=== PATIENT | male | born 1965 | race Caucasian/White ===

== ENCOUNTER → 2024-05-13 | Outpatient (CLI) | payer OTHER | LOC: CPPFTMAIN 08:48 | PROVIDERS: ATTEND Family Medicine | DX: R06.02 Shortness of breath (principal); F17.210 Nicotine dependence, cigarettes, uncomplicated | CPT/HCPCS: 94060; 94726; 94729 ==

== ENCOUNTER 2024-08-25 06:27 | Day surgery (SDC) | payer OTHER ==
[2024-08-20 11:44] VITALS: BMI 45.3
[2024-08-25] MEDS ORDERED: LIDOCAINE 1% (10MG/ML) FOR IV START INTRADERMA PRN (06:39)
[2024-08-25] MEDS: IV FLUID CONTINUATION 1,000 ML IV ONE (06:49)
[2024-08-25 07:03] VITALS: TEMP 97.8
[2024-08-25] MEDS: LACTATED RINGERS 1,000 ML IV SCH (07:12)
--- NOTE | 2024-08-25 07:46 | P.GSHP ---
History of Present Illness H&P Date: 08/25/24 CHIEF COMPLAINT: Dysphagia and colon screen HISTORY OF PRESENT ILLNESS: The patient is a 59-year-old male who presents with dysphagia, gastroesophageal reflux disease and need for colon screen. Upper and lower endoscopy were offered for further evaluation and management. PAST MEDICAL HISTORY: Please see list. PAST SURGICAL HISTORY: Please see list. MEDICATIONS: Please see list. ALLERGIES: Please see list. SOCIAL HISTORY: No illicit drug use FAMILY HISTORY: No reports of Crohn disease or ulcerative colitis. REVIEW OF ORGAN SYSTEMS: CONSTITUTIONAL: No reports of fevers or chills. GI: Denies any blood in stools or constipation. PHYSICAL EXAM: VITAL SIGNS: Stable GENERAL: Well-developed pleasant in no acute distress. HEENT: No scleral icterus. Extraocular movements grossly intact. Moist buccal mucosa. NECK: Supple without lymphadenopathy. CHEST: Unlabored respirations. Equal bilateral excursions. CARDIOVASCULAR: Regular rate and rhythm. Distal 2+ pulses. ABDOMEN: Soft, nondistended. MUSCULOSKELETAL: No clubbing, cyanosis, or edema. ASSESSMENT: 1. Dysphagia and gastroesophageal reflux disease 2. Colon screen. PLAN: 1. Recommend proceeding with an upper and lower endoscopy Past Medical History Past Medical History: Asthma, GERD/Reflux, GI Bleed, Hearing Disorder / Deafness, Hyperlipidemia, Renal Disease Additional Past Medical History / Comment(s): Back problems, chronic stomach u lcers X3 - requiring hx blood transfusion in the past, slight hearing loss, Stage 2 Kidney Disease. History of Any Multi-Drug Resistant Organisms: None Reported Past Surgical History: Tonsillectomy Additional Past Surgical History / Comment(s): EGD's with biopsy, colonoscopies, endoscopic gastric ulcer repair. Past Anesthesia/Blood Transfusion Reactions: No Reported Reaction Additional Past Anesthesia/Blood Transfusion Reaction / Comment(s): Hx blood transfusion with no problems. Smoking Status: Current every day smoker - Past Family History Father Family Medical History: Cancer Mother Family Medical History: Liver Disease Additional Family Medical History / Comment(s): Mother of Hepatitis. Sister(s) Family Medical History: Cancer Additional Family Medical History / Comment(s): Leukemia. Medications and Allergies Home Medications Medication Instructions Recorded Confirmed Type Albuterol Sulfate [Ventolin HFA] 1 puff INHALATION Q4H PRN 08/20/24 08/25/24 History Budesonide/Formoterol Fumarate 2 puff INHALATION BID 08/20/24 08/25/24 History [Symbicort 80-4.5 Mcg Inhaler] Cyclobenzaprine [Flexeril] 5 mg PO HS PRN 08/20/24 08/25/24 History Omeprazole 40 mg PO QAM 08/20/24 08/25/24 History Rosuvastatin Calcium 20 mg PO HS 08/20/24 08/25/24 History Tamsulosin [Flomax] 0.4 mg PO QAM 08/20/24 08/25/24 History Allergies Allergy/AdvReac Type Severity Reaction Status Date / Time NSAIDS (Non-Steroidal AdvReac Has 3 Verified 08/25/24 06:59 Anti-Inflamma bleeding ulcers Surgical - Exam Vital Signs Temp Pulse Resp BP Pulse Ox 97.8 F 75 16 131/87 96 08/25/24 06:49 08/25/24 06:49 08/25/24 06:49 08/25/24 06:49 08/25/24 06:49
[2024-08-25] MEDS ORDERED: LIDOCAINE 1% INJ 10MG/ML (20 ML MDV) ONE (07:57)
[2024-08-25] MEDS ORDERED: PROPOFOL 10 MG/ML 20 ML VIAL IV ONE (07:57)
[2024-08-25] MEDS ORDERED: KETAMINE HCL IN 0.9 % NACL 50 MG/5 ML SYRINGE ONE (07:57)
--- NOTE | 2024-08-25 08:24 | P.PCN ---
Date of Procedure: 08/25/24 Description of Procedure: PREOPERATIVE DIAGNOSIS: Acute gastric ulcer with bleeding Gastroesophageal reflux disease. Morbid obesity. Dysphagia POSTOPERATIVE DIAGNOSIS: Presbyesophagus Gastritis without bleeding Duodenitis without bleeding OPERATION: Esophagogastroduodenoscopy with cold forceps biopsies along esophagus, antrum and duodenum SURGEON: Taniya Aldridge MD ANESTHESIA: MAC. INDICATIONS: The patient is a 59-year-old male who presents with dysphagia and reflux disease. Benefits and risks of the procedure were described. Informed consent was obtained. DESCRIPTION: The patient was brought into the endoscopy suite and laid in the left lateral decubitus position. An Olympus gastroscope was passed along the posterior oropharynx down to the distal esophagus where the squamocolumnar junction was encountered at 46 cm from the incisors. The stomach was entered and no bile reflux was found. Additional findings are listed below. Biopsies with cold forceps were obtained of the antrum. The first through third portion of the duodenum was examined. Retroflexion of the scope confirmed Hill grade 2 lower esophageal valve. The squamocolumnar junction demonstrated LA grade A erosive esophagitis. The stomach was desufflated. The patient tolerated the procedure well. FINDINGS: Squamocolumnar junction 46 cm from the incisors. Diaphragmatic hiatus at 46 cm. Hill grade 2 lower esophageal valve. LA grade A erosive esophagitis. Biopsies obtained Duodenitis with biopsies obtained of the duodenum. Chronic gastritis with biopsies obtained. Tertiary contractions consistent with presbyesophagus RECOMMENDATIONS: Upper endoscopy as needed.
--- NOTE | 2024-08-25 08:29 | P.PCN ---
Date of Procedure: 08/25/24 Description of Procedure: PREOPERATIVE DIAGNOSIS: Colonoscopy screening POSTOPERATIVE DIAGNOSIS: Tubular adenoma transverse colon Sigmoid diverticulosis Internal hemorrhoids, grade 2 OPERATION: Colonoscopy to the ileocecal valve and appendiceal orifice, cecum Colonoscopy with hot snare polypectomy SURGEON: Taniya Aldridge MD. ANESTHESIA: MAC. INDICATIONS: The patient is an 59-year-old male who presents for colon sick screening. Benefits and risks were described and informed consent was obtained. DESCRIPTION OF PROCEDURE: The patient had undergone Suprep. The patient had been brought into the operating room and laid in the left lateral decubitus position. After adequate intravenous sedation, the rectum was examined with 2% lidocaine jelly. The prostate was unremarkable. No external hemorrhoids were encountered. The rectal tone was within normal limits. No lesions were palpated in the rectal vault. An Olympus colonoscope was advanced until the cecum, ileocecal valve and appendiceal orifice were clearly viewed. The prep was good. Sigmoid diverticulosis was encountered. Colonic polyps were found and removed. No evidence of focal colitis was found. Retroflexion of the scope demonstrated grade 2 internal hemorrhoids without active bleeding or inflammation. The colon was desufflated. The patient had tolerated the procedure well. Withdrawal time was over 6 minutes. FINDINGS: Aronchick preparation quality scale 1+ (1-5) Internal hemorrhoids, grade 2 No external hemorrhoids No arteriovenous malformations. Sigmoid diverticulosis Removal of 2 polyps: - Snare polypectomy mid transverse colon x 2, 5 - 8 mm tubulovillous adenoma No focal colitis. RECOMMENDATIONS: Repeat colonoscopy 3 years, 2027 Plan - Discharge Summary Discharge Rx Participant: No New Discharge Prescriptions: Continue Rosuvastatin Calcium 20 mg PO HS Tamsulosin [Flomax] 0.4 mg PO QAM Omeprazole 40 mg PO QAM Budesonide/Formoterol Fumarate [Symbicort 80-4.5 Mcg Inhaler] 2 puff INHALATION BID Albuterol Sulfate [Ventolin HFA] 1 puff INHALATION Q4H PRN PRN Reason: Shortness Of Breath Cyclobenzaprine [Flexeril] 5 mg PO HS PRN PRN Reason: Pain Discharge Medication List Albuterol Sulfate [Ventolin HFA] 1 puff INHALATION Q4H PRN 08/20/24 [History] Budesonide/Formoterol Fumarate [Symbicort 80-4.5 Mcg Inhaler] 2 puff INHALATION BID 08/20/24 [History] Cyclobenzaprine [Flexeril] 5 mg PO HS PRN 08/20/24 [History] Omeprazole 40 mg PO QAM 08/20/24 [History] Rosuvastatin Calcium 20 mg PO HS 08/20/24 [History] Tamsulosin [Flomax] 0.4 mg PO QAM 08/20/24 [History] Follow up Appointment(s)/Referral(s): Taniya Aldridge MD [STAFF PHYSICIAN] - 09/23/24 3:00 pm Patient Instructions/Handouts: Colorectal Polyps (GEN), Diverticulosis (ED), Diverticulosis Diet (GEN) Activity/Diet/Wound Care/Special Instructions: Repeat colonoscopy 3 years, 2027. Recommend upper endoscopy with rigid dilation for symptomatic dysphagia. Discharge Disposition: HOME SELF-CARE
[2024-08-25 08:36] VITALS: BP 111/83; PULSE 69; RESP 18
== END 2024-08-25 09:01 | disposition home or self-care (01) ==
LOC: ORWHC2ENDO 06:27
PROVIDERS: ATTEND Surgery Plastic and Reconstructive Surgery
DX: Z12.11 Encounter for screening for malignant neoplasm of colon (principal); K29.50 Unspecified chronic gastritis without bleeding; D12.3 Benign neoplasm of transverse colon; K25.0 Acute gastric ulcer with hemorrhage; K25.4 Chronic or unspecified gastric ulcer with hemorrhage; K29.80 Duodenitis without bleeding; K21.00 Gastro-esophageal reflux disease with esophagitis, without bleeding; K57.30 Diverticulosis of large intestine without perforation or abscess without bleeding; K64.1 Second degree hemorrhoids; N18.2 Chronic kidney disease, stage 2 (mild); J45.909 Unspecified asthma, uncomplicated; E66.01 Morbid (severe) obesity due to excess calories; E78.5 Hyperlipidemia, unspecified; F17.210 Nicotine dependence, cigarettes, uncomplicated; Z68.42 Body mass index [BMI] 45.0-49.9, adult; Z90.89 Acquired absence of other organs; Z88.6 Allergy status to analgesic agent; Z79.51 Long term (current) use of inhaled steroids; Z79.899 Other long term (current) drug therapy
CPT/HCPCS: 88305; 88342; 45385; 43239; J2003; J2704

== ENCOUNTER → 2024-09-03 | Outpatient (CLI) | payer OTHER ==
[2024-09-03 14:42] VITALS: BP 138/91; PULSE 74; RESP 16; TEMP 98.8; BMI 47.1
--- NOTE | 2024-09-03 15:22 | P.HPBAR ---
Bariatric H&P - History & Physicial H&P Date: 09/03/24 History & Physicial: Visit/CC: Initial Patient initial contact: Initial weight: 168.736 kg Initial weight in pounds: 372.00 Height: 6 ft 2.5 in Initial BMI: 47.1 Last weight: Current weight: 168.736 kg Current weight in pounds: 372.00 Current BMI: 47.1 [place] body weight (based on NIH guidelines): 83.35 kg Excess body weight loss: 0.0% The patient is a 59 year-old M who presents for Bariatric Assessment. He comes in with history of ulcers. He is status post upper and lower scope. Needs pink sheet. He has sleep apnea. He wants the surgery. Needs labs. No machine. Needs sleep study. Just had insurance. History of GI bleed from ulcers. 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 Has kidney disease prostate enlargement. Urologist at [facility] does not want. Past Medical History Past Medical History: Asthma, GERD/Reflux, GI Bleed, Hearing Disorder / Deafness, Hyperlipidemia, Renal Disease Additional Past Medical History / Comment(s): Back problems, chronic stomach ulcers X3 - requiring hx blood transfusion in the past, slight hearing loss, Stage 2 Kidney Disease. History of Any Multi-Drug Resistant Organisms: None Reported Past Surgical History: Tonsillectomy Additional Past Surgical History / Comment(s): EGD's with biopsy, colonoscopies, endoscopic gastric ulcer repair. Past Anesthesia/Blood Transfusion Reactions: No Reported Reaction Additional Past Anesthesia/Blood Transfusion Reaction / Comm: Hx blood transfusion with no problems. Smoking Status: Current every day smoker - Past Family History Father Family Medical History: Cancer Mother Family Medical History: Liver Disease Additional Family Medical History / Comment(s): Mother of Hepatitis. Sister(s) Family Medical History: Cancer Additional Family Medical History / Comment(s): Leukemia. Surgical - Exam Vital Signs Temp Pulse Resp BP 98.8 F 74 16 138/91 09/03/24 14:38 09/03/24 14:38 09/03/24 14:38 09/03/24 14:38 Bariatric Checklist Checklist: Plan: Checklist: EGD: 1. Hiatal hernia: 2. H. Pylori: HgbA1c: Vitamin D: Smoking: Current every day smoker Primary care physician referral: Psychiatry clearance: Cardiology clearance: Sleep study: Diet journal: VTE risk score: VTE risk level: Rehab needs at discharge:
[2024-09-03 17:12] LABS: INR 1.0 (<1.2); Partial Thromboplastin Time 26.3 sec (22.0-30.0); Prothrombin Time 10.9 sec (10.0-12.5)
[2024-09-03 19:11] LABS: HCT 55.6 % (39.6-50.0); HGB 18.2 g/dL (13.0-17.0); MCH 28.4 pg (27.0-32.0); MCHC 32.7 g/dL (32.0-37.0); MCV 86.7 FL (80.0-97.0); NRBC Per 100 WBC 0 X 10*3/uL (0.00-0.01); Platelet Count 253 X 10*3/uL (140-440); RBC 6.41 X 10*6/uL (4.40-5.60); RDW 13.5 % (11.5-14.5); WBC 8.69 X 10*3/uL (4.50-10.00)
[2024-09-03 19:13] LABS: Prealbumin 24.4 mg/dL (18.0-42.0)
[2024-09-03 22:31] LABS: Cholesterol 182.00 mg/dL (0.00-200.00); HDL Cholesterol 31.90 mg/dL (40.00-60.00); LDL Cholesterol,Calculated 83.5 mg/dL (0.0-131.0); Magnesium 2.4 mg/dL (1.5-2.4); Triglycerides 333.00 mg/dL (0.00-149.00); VLDL Calculation 66.60 mg/dL (5.00-40.00)
[2024-09-03 22:32] LABS: ALT 23 U/L (10-49); AST 21 U/L (14-35); Albumin 4.2 g/dL (3.8-4.9); Albumin/Globulin Ratio 1.40 Ratio (1.60-3.17); Alkaline Phosphatase 59 U/L (41-126); Anion Gap 18.60 mmol/L (4.00-12.00); BUN/Creat Ratio 15.00 Ratio (12.00-20.00); Blood Urea Nitrogen 18.0 mg/dL (9.0-27.0); Calcium 9.6 mg/dL (8.7-10.3); Carbon Dioxide 19.4 mmol/L (21.6-31.8); Chloride 102 mmol/L (96-109); Ferritin 173.0 ng/mL (22.0-322.0); Globulin 3.0 g/dL (1.6-3.3); Glucose 82 mg/dL (70-110); Iron 50 UG/DL (65-175); Potassium 4.6 mmol/L (3.5-5.5); Sodium 140 mmol/L (135-145); Total Iron Binding Capacity 326 UG/DL (228-460); Total Protein 7.2 g/dL (6.2-8.2); Vitamin B12 369.0 pg/mL (200.0-944.0)
[2024-09-04 02:28] LABS: Urine Alcohol Negative (Negative); Urine Barbiturate Negative (Negative)
[2024-09-04 12:54] LABS: Zinc, Serum 65 ug/dL (60-130)
[2024-09-05 05:59] LABS: Vit B1(Thiamine) 62 ug/L (38-122)
[2024-09-06 19:40] LABS: Anabasine Urine 3.2 ng/mL (<2.0)
== END ==
LOC: BARWHC3 13:13
PROVIDERS: ATTEND Surgery Plastic and Reconstructive Surgery
DX: E66.01 Morbid (severe) obesity due to excess calories (principal); E89.1 Postprocedural hypoinsulinemia; E44.0 Moderate protein-calorie malnutrition; E45 Retarded development following protein-calorie malnutrition; D50.8 Other iron deficiency anemias; E55.9 Vitamin D deficiency, unspecified; N19 Unspecified kidney failure; T56.89 Toxic effects of other metals; K91.2 Postsurgical malabsorption, not elsewhere classified; K74.1 Hepatic sclerosis; F17.200 Nicotine dependence, unspecified, uncomplicated; Z68.42 Body mass index [BMI] 45.0-49.9, adult; Z88.6 Allergy status to analgesic agent
CPT/HCPCS: 84255; 84134; 84425; 80061; 80053; 82607; 82728; 82525; 82746; 83540; 83550; 83735; 84100; 84443; 84590; 84630; 85027; 85610; 85730; 82306; 80306; 83970; 83036; 93005; G0480; G0463; 80323; 99202